=== PATIENT | male | born 1985 | race African-American/Black ===

== ENCOUNTER 2024-08-04 09:51 | Emergency (ER) | payer MEDICAID, OTHER ==
[~2024-08-04] VITALS: Ht 198.1 cm; Wt 149.0 kg
[2024-08-04 10:11] VITALS: RESP 18; O2SAT 97
[2024-08-04 10:32] VITALS: BP 157/94; PULSE 97; RESP 18; TEMP 98.3; O2SAT 99
== END 2024-08-04 12:30 | disposition left against medical advice (07) ==
LOC: ER 09:51
DX: I10 Essential (primary) hypertension (principal); Z53.21 Procedure and treatment not carried out due to patient leaving prior to being seen by health care provider